=== PATIENT | female | born 1980 | race American Indian/Alaskan Native ===

== ENCOUNTER 2020-09-11 22:25 | Emergency (ER) | payer SELFPAY ==
[2020-09-11 23:08] VITALS: BP 152/95
[2020-09-12] MEDS ORDERED: FAMOTIDINE 20 MG/2 ML INJ IV ONE (00:30)
[2020-09-12] MEDS ORDERED: ONDANSETRON 4 MG/2 ML INJ IV ONE (00:30)
[2020-09-12] MEDS ORDERED: KETOROLAC 30 MG/1 ML INJ IV ONE (00:31)
[2020-09-12 00:49] LABS: Basophils % (Auto) 0.5 % (0.0-1.8); Eosinophils # (Auto) 0.1 K/mm3 (0.0-0.4); Eosinophils % (Auto) 0.7 % (0.0-4.3); Hematocrit 37.4 % (30.3-42.9); Hemoglobin 12.7 gm/dl (10.1-14.3); Lymphocytes # (Auto) 2.9 K/mm3 (1.2-5.4); Lymphocytes % (Auto) 34.2 % (13.4-35.0); Mean Corpuscular HGB Conc 34 % (30-34); Mean Corpuscular Volume 85 fl (79-97); Monocytes # (Auto) 0.7 K/mm3 (0.0-0.8); Monocytes % (Auto) 7.8 % (0.0-7.3); Platelet Count 416 K/mm3 (140-440); Red Blood Count 4.39 M/mm3 (3.65-5.03); Red Cell Distribution Width 15.9 % (13.2-15.2)
[2020-09-12 00:55] LABS: Bilirubin,Urine NEG (Negative); Blood,Urine SM (Negative); Color,Urine Yellow (Yellow); Mucus,Urine FEW /HPF; Protein,Urine <15 mg/dL mg/dL (Negative); Urobilinogen,Urine < 2.0 mg/dL (<2.0)
[2020-09-12 01:12] LABS: Alanine Aminotransferase 20 units/L (7-56); Albumin 4.2 g/dL (3.9-5); Blood Urea Nitrogen 11 mg/dL (7-17); Calcium 9.3 mg/dL (8.4-10.2); Hemolysis Index 5
[2020-09-12 01:14] LABS: BUN/Creatinine Ratio 16
--- NOTE | 2020-09-12 02:32 | Ultrasound Report ---
US abdomen limited INDICATION / CLINICAL INFORMATION: RUQ Pain. COMPARISON: None available. FINDINGS: Liver and pancreas appear unremarkable. Gallbladder is filled with stones. Common duct is normal in size. IMPRESSION: 1. Cholelithiasis. Signer Name: Vasyl Powell MD Signed: 09/12/2020 2:28 AM Workstation Name: [id number]
--- NOTE | 2020-09-12 02:36 | XRay Report ---
CHEST 1 VIEW INDICATION: cough COMPARISON: None FINDINGS: Support devices: None Heart: Normal Lungs/Pleura: No acute pulmonary or pleural findings. IMPRESSION: 1. No acute disease. Signer Name: Vasyl Powell MD Signed: 09/12/2020 2:32 AM Workstation Name: [id number]
--- NOTE | 2020-09-12 02:54 | Emergency Department Report ---
ED Abdominal Pain HPI - General Chief Complaint: Abdominal Pain Stated Complaint: HEADACHES/SOB/GALLBLADDER Source: patient Mode of arrival: Ambulatory Limitations: No Limitations - History of Present Illness Initial Comments: Patient is a 40-year-old -[place] female with a history of chronic cholelithiasis and heavy tobacco abuse who presents to the ED with complaint of acute onset persistent nasal and sinus congestion, dry cough, right upper quadrant abdominal pain for the last 2 days worse in the last 24 hours. Patient states that the pain is worse with any food she eats or laying down. Patient states that she was diagnosed with cholelithiasis 2 years ago and was supposed to follow-up outpatient for cholecystectomy but has not been able to afford as the cost is too high for her to manage without medical insurance. Patient states that she has been taking pain medications as needed for the right upper quadrant pain. Patient denies dizziness, syncope, diarrhea, dysuria, urinary frequency and urgency, chest pain, shortness of breath, change in vision, back pain, vaginal bleeding, vaginal discharge, sore throat or hematemesis and hemoptysis. MD Complaint: abdominal pain (RUQ pain), other (dry cough) -: Gradual, days(s) (2), year(s) (12) Location: RUQ, epigastric Radiation: none Migration to: no migration Severity scale (0 -10): 9 Quality: cramping, aching, sharp Consistency: constant Improves With: nothing Worsens With: eating, vomiting Context: other (chronic cholelithiasis) Associated Symptoms: denies other symptoms, nausea, vomiting, anorexia. denies: diarrhea, fever, chills, constipation, dysuria, hematemesis, hematochezia, melena, hematuria, syncope, other - Related Data LMP Date: 09/08/20 Previous Rx's Medication Instructions Recorded Last Taken Type Albuterol Sulfate [Proventil Hfa] 1 - 2 puff IH Q6H PRN #1 hfa.aer.ad 09/12/20 Unknown Rx Amoxicillin/Potassium Clav 1 each PO Q12H #20 tablet 09/12/20 Unknown Rx [Augmentin 875-125 Tablet] Benzonatate [Tessalon Perles] 100 mg PO Q8HR #30 capsule 09/12/20 Unknown Rx Dicyclomine [Bentyl] 20 mg PO Q6H PRN #30 tablet 09/12/20 Unknown Rx Famotidine [Pepcid] 20 mg PO BID #30 tablet 09/12/20 Unknown Rx Ibuprofen [Motrin] 800 mg PO Q8HR PRN #30 tablet 09/12/20 Unknown Rx Ondansetron [Zofran Odt] 4 mg PO Q6HR PRN #15 tab.rapdis 09/12/20 Unknown Rx methylPREDNISolone [Medrol 4MG 4 mg PO DAILY #21 tab.ds.pk 09/12/20 Unknown Rx DOSEPAK (21 tabs)] Allergies Allergy/AdvReac Type Severity Reaction Status Date / Time tramadol Allergy Vomiting Verified 09/11/20 23:02 ED Review of Systems ROS: Stated complaint: HEADACHES/SOB/GALLBLADDER Other details as noted in HPI Constitutional: denies: chills, fever Eyes: denies: eye pain, eye discharge, vision change ENT: congestion. denies: ear pain, throat pain Respiratory: cough. denies: shortness of breath, wheezing Cardiovascular: denies: chest pain, palpitations Endocrine: no symptoms reported Gastrointestinal: abdominal pain, nausea, vomiting. denies: diarrhea Genitourinary: denies: urgency, dysuria, discharge Musculoskeletal: denies: back pain, joint swelling, arthralgia Skin: denies: rash, lesions Neurological: denies: headache, weakness, paresthesias Psychiatric: denies: anxiety, depression Hematological/Lymphatic: denies: easy bleeding, easy bruising ED Past Medical Hx - Past Medical History Previous Medical History?: Yes Additional medical history: Ectopic , Fallopian tube removal - Surgical History Past Surgical History?: Yes Additional Surgical History: Ectopic , Fallopian tube removal - Social History Smoking Status: Current Every Day Smoker - Medications Home Medications: Home Medications Medication Instructions Recorded Confirmed Last Taken Type Albuterol Sulfate [Proventil Hfa] 1 - 2 puff IH Q6H PRN #1 hfa.aer.ad 09/12/20 Unknown Rx Amoxicillin/Potassium Clav 1 each PO Q12H #20 tablet 09/12/20 Unknown Rx [Augmentin 875-125 Tablet] Benzonatate [Tessalon Perles] 100 mg PO Q8HR #30 capsule 09/12/20 Unknown Rx Dicyclomine [Bentyl] 20 mg PO Q6H PRN #30 tablet 09/12/20 Unknown Rx Famotidine [Pepcid] 20 mg PO BID #30 tablet 09/12/20 Unknown Rx Ibuprofen [Motrin] 800 mg PO Q8HR PRN #30 tablet 09/12/20 Unknown Rx Ondansetron [Zofran Odt] 4 mg PO Q6HR PRN #15 tab.rapdis 09/12/20 Unknown Rx methylPREDNISolone [Medrol 4MG 4 mg PO DAILY #21 tab.ds.pk 09/12/20 Unknown Rx DOSEPAK (21 tabs)] ED Physical Exam - General Limitations: No Limitations General appearance: alert, in no apparent distress - Head Head exam: Present: atraumatic, normocephalic, normal inspection - Eye Eye exam: Present: normal appearance, PERRL, EOMI Pupils: Present: normal accommodation - ENT ENT exam: Present: normal exam, normal orophraynx, mucous membranes moist, TM's normal bilaterally, normal external ear exam - Neck Neck exam: Present: normal inspection, full ROM - Respiratory Respiratory exam: Present: normal lung sounds bilaterally. Absent: respiratory distress, wheezes, rales, rhonchi, stridor, chest wall tenderness, accessory muscle use, prolonged expiratory - Cardiovascular Cardiovascular Exam: Present: regular rate, normal rhythm, normal heart sounds. Absent: systolic murmur, diastolic murmur, rubs, gallop - GI/Abdominal GI/Abdominal exam: Present: soft, tenderness (Palpable right upper quadrant tenderness, no guarding or rebound and negative Engel sign), normal bowel sounds. Absent: guarding, rebound - Extremities Exam Extremities exam: Present: normal inspection, full ROM, normal capillary refill - Back Exam Back exam: Present: normal inspection, full ROM. Absent: tenderness, CVA tenderness (R), muscle spasm, paraspinal tenderness, vertebral tenderness - Neurological Exam Neurological exam: Present: alert, oriented X3, CN II-XII intact, normal gait, reflexes normal - Psychiatric Psychiatric exam: Present: normal affect, normal mood - Skin Skin exam: Present: warm, dry, intact, normal color. Absent: rash ED Course Vital Signs 09/11/20 22:58 Temperature 98.4 F Pulse Rate 78 Respiratory 16 Rate Blood Pressure 152/95 O2 Sat by Pulse 100 Oximetry ED Medical Decision Making - Lab Data Result diagrams: 09/12/20 00:27 09/12/20 00:27 - Radiology Data Radiology results: report reviewed, image reviewed [address] [address] Ultrasound Report Signed Patient: LUIS GOODMAN MR#: [id number] : 1980 Acct:[id number] Age/Sex: 40 / F ADM Date: 09/11/20 Loc: ED Attending Dr: Ordering Physician: MANDA CARVAJAL Date of Service: 09/12/20 Procedure(s): US abdomen limited Accession Number(s): [id number] cc: MANDA CARVAJAL US abdomen limited INDICATION / CLINICAL INFORMATION: RUQ Pain. COMPARISON: None available. FINDINGS: Liver and pancreas appear unremarkable. Gallbladder is filled with stones. Common duct is normal in size. IMPRESSION: 1. Cholelithiasis. Signer Name: Vasyl Powell MD Signed: 09/12/2020 2:28 AM Workstation Name: [email or web address] Transcribed By: TM Dictated By: Vasyl Powell MD Electronically Authenticated By: Vasyl Powell MD Signed Date/Time: 09/12/20227 DD/ 5 TD/TT: [address] [address] XRay Report Signed Patient: LUIS GOODMAN MR#: [id number] : 1980 Acct:[id number] Age/Sex: 40 / F ADM Date: 09/11/20 Loc: ED Attending Dr: Ordering Physician: MANDA CARVAJAL Date of Service: 09/12/20 Procedure(s): XR chest 1V ap Accession Number(s): [id number] cc: MANDA CARVAJAL Time In Minutes: CHEST 1 VIEW INDICATION: cough COMPARISON: None FINDINGS: Support devices: None Heart: Normal Lungs/Pleura: No acute pulmonary or pleural findings. IMPRESSION: 1. No acute disease. Signer Name: Vasyl Powell MD Signed: 09/12/2020 2:32 AM Workstation Name: [id number] Transcribed By: TM Dictated By: Vasyl Powell MD Electronically Authenticated By: Vasyl Powell MD Signed Date/Time: 09/12/20231 DD/ 1 TD/TT: - Medical Decision Making This is a 40-year-old -Danish female with a history of chronic cholelithiasis and heavy tobacco abuse who presents to the ED with complaint of acute onset persistent nasal and sinus congestion, dry cough, right upper quadrant abdominal pain for the last 2 days worse in the last 24 hours. Patient states that the pain is worse with any food she eats or laying down. Patient states that she was diagnosed with cholelithiasis 2 years ago and was supposed to follow-up outpatient for cholecystectomy but has not been able to afford as the cost is too high for her to manage without medical insurance. Patient states that she has been taking pain medications as needed for the right upper quadrant pain. In the ED, patient is alert and oriented x3 and is not in any distress. Patient was treated for pain in the ED and also given antiemetics and antacids. Chest x-ray shows no acute cardiopulmonary abnormalities or pneumonitis. Gallbladder ultrasound showed multiple gallstones in the gallbladder without evidence of cholecystitis or common bile duct obstruction. Lab test results were reviewed and are all nonactionable except for urinalysis that showed urinary tract infection. On reevaluation, patient's pain is well controlled medications. Patient was discharged home on pain medications, antiemetics, antacids and also given antibiotics for UTI. Patient was advised to consider following up with the general surgeon on-call Dr. Garza for outpatient follow-up for laparoscopic cholecystectomy. Patient was otherwise advised to return to the ED immediately if symptoms get worse. - Differential Diagnosis Gallstones; cholelithiasis; Bronchitis; GERD; URI Critical care attestation.: If time is entered above; I have spent that time in minutes in the direct care of this critically ill patient, excluding procedure time. ED Disposition Clinical Impression: Cholelithiasis without cholecystitis, Acute urinary tract infection Acute bronchitis Qualifiers: Bronchitis organism: other organism Qualified Code(s): J20.8 - Acute bronchitis due to other specified organisms Disposition: TO HOME OR SELFCARE Is pt being admited?: No Does the pt Need Aspirin: No Condition: Stable Instructions: Abdominal Pain (ED), Acute Bronchitis (ED), Acute Bronchitis, Adult, [id number], Cholelithiasis, Mple-aw-Ortp, Urinary Tract Infection, Adult, [id number] Additional Instructions: All lab test results were reviewed and are all nonactionable except for ur inalysis that showed significant urinary tract infection. Chest x-ray showed no acute cardiopulmonary abnormalities or pneumonitis. Gallbladder ultrasound showed multiple gallstones in the gallbladder consistent with chronic cholelithiasis. Therefore take medications with food, drink plenty of fluids and follow-up with the general surgeon on-call Dr. Garza for further evaluation outpatient for possible cholecystectomy procedure. Return to the ED immediately if symptoms get worse. Prescriptions: Amoxicillin/Potassium Clav [Augmentin 875-125 Tablet] 1 each PO Q12H #20 tablet Dicyclomine [Bentyl] 20 mg PO Q6H PRN #30 tablet PRN Reason: abdominal pain methylPREDNISolone [Medrol 4MG DOSEPAK (21 tabs)] 4 mg PO DAILY #21 tab.ds.pk Ibuprofen [Motrin] 800 mg PO Q8HR PRN #30 tablet PRN Reason: Pain , Severe (7-10) Famotidine [Pepcid] 20 mg PO BID #30 tablet Albuterol Sulfate [Proventil Hfa] 1 - 2 puff IH Q6H PRN #1 hfa.aer.ad PRN Reason: Dyspnea Benzonatate [Tessalon Perles] 100 mg PO Q8HR #30 capsule Ondansetron [Zofran Odt] 4 mg PO Q6HR PRN #15 tab.rapdis PRN Reason: Nausea Referrals: [facility] [Provider Group] - 3-5 Days TIMOTEO GARZA MD [Staff Physician] - 2-3 Days Forms: Work/School Release Form(ED) Time of Disposition: 02:59 Print Language: BURKINAN
== END 2020-09-12 03:36 | disposition home or self-care (01) ==
LOC: ED 22:25
DX: J20.8 Acute bronchitis due to other specified organisms (principal); K80.20 Calculus of gallbladder without cholecystitis without obstruction; N39.0 Urinary tract infection, site not specified; F17.200 Nicotine dependence, unspecified, uncomplicated; Z88.8 Allergy status to other drugs, medicaments and biological substances; Z79.899 Other long term (current) drug therapy; Z98.890 Other specified postprocedural states
CPT/HCPCS: 36415; 71045; 76705; 80053; 81001; 83690; 84703; 85025; 87086; 96374; 96375; 99284; J1885; J2405

== ENCOUNTER 2020-09-12 23:51 | Emergency (ER) | payer OTHER ==
[2020-09-13] MEDS ORDERED: IBUPROFEN 600 MG TAB PO ONE (00:46)
[2020-09-13] MEDS ORDERED: ACETAMINOPHEN 500 MG TAB PO ONE (00:46)
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
[2020-09-13 03:41] VITALS: BP 142/86
== END 2020-09-13 03:35 | disposition home or self-care (01) ==
LOC: ED 23:51
DX: S63.501A Unspecified sprain of right wrist, initial encounter (principal); S63.91XA Sprain of unspecified part of right wrist and hand, initial encounter; F17.200 Nicotine dependence, unspecified, uncomplicated; Z79.899 Other long term (current) drug therapy; Z98.890 Other specified postprocedural states; Z88.8 Allergy status to other drugs, medicaments and biological substances; V49.59XA Passenger injured in collision with other motor vehicles in traffic accident, initial encounter; Y92.410 Unspecified street and highway as the place of occurrence of the external cause; Y93.89 Activity, other specified; Y99.8 Other external cause status

== ENCOUNTER 2020-09-18 15:33 | Emergency (ER) | payer SELFPAY ==
[2020-09-18 16:09] VITALS: BP 130/75
--- NOTE | 2020-09-18 16:16 | Event Note ---
ED Screening Note Date of service: 09/18/20 Time: 16:15 ED Screening Note: 40-year-old female patient presents to emergency department with complaints of left hip and left knee pain status post mechanical fall yesterday. Patient states she was walking in the parking lot when she accidentally fell. There was no head injury or loss of consciousness. Patient has been ambulatory without assistance since the fall. No prior history of injuries to the left hip/left knee. Denies headache, neck pain, chest pain, abdominal pain, back pain, foot pain, ankle pain. Denies all other complaints at this time. Full physical exam deferred until examination room becomes available. This initial assessment/diagnostic orders/clinical plan/treatment(s) is/are subject to change based on patients health status, clinical progression and re- assessment by fellow clinical providers in the ED. Further treatment and workup at subsequent clinical providers discretion. Patient/guardian urged not to elope from the ED as their condition may be serious if not clinically assessed and managed.
--- NOTE | 2020-09-18 16:54 | XRay Report ---
Pelvis and left hip 2 views INDICATION: Fall FINDINGS: Bilateral femoral heads well-seated in the acetabulum. No acute fracture or dislocation. Hearn perior and inferior pubic rami appear intact. Left knee 4 views INDICATION: Knee pain FINDINGS: Alignment appears normal. No acute fracture or dislocation. Signer Name: Joe Mar MD Signed: 09/18/2020 4:49 PM Workstation Name: [id number]
--- NOTE | 2020-09-18 16:54 | XRay Report ---
Pelvis and left hip 2 views INDICATION: Fall FINDINGS: Bilateral femoral heads well-seated in the acetabulum. No acute fracture or dislocation. Hearn perior and inferior pubic rami appear intact. Left knee 4 views INDICATION: Knee pain FINDINGS: Alignment appears normal. No acute fracture or dislocation. Signer Name: Joe Mar MD Signed: 09/18/2020 4:49 PM Workstation Name: [id number]
--- NOTE | 2020-09-18 17:24 | Emergency Department Report ---
ED General Adult HPI - General Chief complaint: Fall Stated complaint: LT HIP/KNEE FALL Source: patient Mode of arrival: Ambulatory Limitations: No Limitations - History of Present Illness Initial comments: 40-year-old female patient presents to emergency department with complaints of left hip and left knee pain status post mechanical fall yesterday. Patient states she was walking in the parking lot when she accidentally fell. There was no head injury or loss of consciousness. Patient has been ambulatory without assistance since the fall. No prior history of injuries to the left hip/left knee. Denies headache, neck pain, chest pain, abdominal pain, back pain, foot pain, ankle pain. Denies all other complaints at this time. - Related Data Previous Rx's Medication Instructions Recorded Last Taken Type Albuterol Sulfate [Proventil Hfa] 1 - 2 puff IH Q6H PRN #1 hfa.aer.ad 09/12/20 Unknown Rx Amoxicillin/Potassium Clav 1 each PO Q12H #20 tablet 09/12/20 Unknown Rx [Augmentin 875-125 Tablet] Benzonatate [Tessalon Perles] 100 mg PO Q8HR #30 capsule 09/12/20 Unknown Rx Dicyclomine [Bentyl] 20 mg PO Q6H PRN #30 tablet 09/12/20 Unknown Rx Famotidine [Pepcid] 20 mg PO BID #30 tablet 09/12/20 Unknown Rx Ondansetron [Zofran Odt] 4 mg PO Q6HR PRN #15 tab.rapdis 09/12/20 Unknown Rx methylPREDNISolone [Medrol 4MG 4 mg PO DAILY #21 tab.ds.pk 09/12/20 Unknown Rx DOSEPAK (21 tabs)] Ibuprofen [Motrin 800 MG tab] 800 mg PO Q8HR PRN #30 tablet 09/13/20 Unknown Rx methOCARBAMOL [Robaxin TAB] 750 mg PO Q8H PRN #21 tablet 09/13/20 Unknown Rx Naproxen 500 mg PO BID #20 tablet 09/18/20 Unknown Rx Allergies Allergy/AdvReac Type Severity Reaction Status Date / Time tramadol Allergy Vomiting Verified 09/18/20 16:07 ED Review of Systems ROS: Stated complaint: LT HIP/KNEE FALL Other details as noted in HPI Other: CARDIOVASCULAR: Negative for chest pain. PULMONARY: Negative for dyspnea. GASTROINTESTINAL: Negative for abdominal pain. MUSCULOSKELETAL: Positive for left hip and left knee pain. NEUROLOGICAL: Negative for headache. INTEGUMENTARY: Negative for ecchymosis. ED Past Medical Hx - Past Medical History Previous Medical History?: Yes Additional medical history: Ectopic , Fallopian tube removal - Surgical History Additional Surgical History: Ectopic , Fallopian tube removal - Social History Smoking Status: Current Every Day Smoker - Medications Home Medications: Home Medications Medication Instructions Recorded Confirmed Last Taken Type Albuterol Sulfate [Proventil Hfa] 1 - 2 puff IH Q6H PRN #1 hfa.aer.ad 09/12/20 Unknown Rx Amoxicillin/Potassium Clav 1 each PO Q12H #20 tablet 09/12/20 Unknown Rx [Augmentin 875-125 Tablet] Benzonatate [Tessalon Perles] 100 mg PO Q8HR #30 capsule 09/12/20 Unknown Rx Dicyclomine [Bentyl] 20 mg PO Q6H PRN #30 tablet 09/12/20 Unknown Rx Famotidine [Pepcid] 20 mg PO BID #30 tablet 09/12/20 Unknown Rx Ondansetron [Zofran Odt] 4 mg PO Q6HR PRN #15 tab.rapdis 09/12/20 Unknown Rx methylPREDNISolone [Medrol 4MG 4 mg PO DAILY #21 tab.ds.pk 09/12/20 Unknown Rx DOSEPAK (21 tabs)] Ibuprofen [Motrin 800 MG tab] 800 mg PO Q8HR PRN #30 tablet 09/13/20 Unknown Rx methOCARBAMOL [Robaxin TAB] 750 mg PO Q8H PRN #21 tablet 09/13/20 Unknown Rx Naproxen 500 mg PO BID #20 tablet 09/18/20 Unknown Rx ED Physical Exam - General Limitations: No Limitations - Other Other exam information: General: Awake, appropriately interactive, no acute distress. Neck: Supple. Full range of motion intact. Cardiovascular: Normal peripheral perfusion. Pulmonary: No respiratory distress. Patient is speaking normally without use of accessory muscles. Skin: No apparent rashes or lesions. Neurological: No facial asymmetry. Speech is clear. Follows commands. Patient is alert and oriented. Musculoskeletal: Tenderness to palpation along the posterior left hip without obvious deformity, dislocation, or discoloration. Tenderness to palpation along the inferomedial aspect of the left knee without obvious deformity, dislocation, or discoloration. No joint effusion. Anterior drawer sign is negative. Valgus and varus stress tests are negative. Ambulatory without assistance. No overlying ecchymosis. Distal neurovascular and motor/sensory function are intact. Psych: Cooperative. Appropriate mood and affect. ED Course Vital Signs 09/18/20 16:08 Temperature 98.3 F Pulse Rate 102 H Respiratory 16 Rate Blood Pressure 130/75 O2 Sat by Pulse 99 Oximetry ED Medical Decision Making - Radiology Data X-rays of the left knee and left hip without acute process, per radiologist. - Medical Decision Making Differential diagnosis including but not limited to: sprain, strain, fracture, contusion, dislocation Patient presents emergency department with complaints of traumatic left hip/left knee pain status post mechanical fall yesterday. Vital signs are stable. She is ambulatory and neurovascularly intact throughout. She is not an appropriate candidate for rule-out using Solomons knee rules, as her tenderness is not localized to the patella. X-rays are negative. History and exam findings most suggestive of soft tissue contusion. Patient will be discharged home with appropriate symptomatic treatment and referred to local primary care provider for close outpatient follow-up. Patient expressed understanding and is agreeable to plan of care. RICE precautions discussed. Strict return precautions provided. Repeat exam is unremarkable and benign. History, exam, diagnostic testing, and current condition do not suggest worrisome pathology to warrant further testing, continued ED treatment, admission, or surgical evaluation at this point. Given the low probability of a significant medical illness, it would be more likely to result in harm than benefit to perform further testing at this stage. Discussed findings, presumptive diagnosis, need for follow-up and specific signs/symptoms that should prompt immediate return to the emergency department. Instructions were explained in detail to the patient in addition to giving written discharge information. Patient expressed understanding and was given the opportunity to ask questions, all of which were satisfactorily answered prior to discharge home. Critical care attestation.: If time is entered above; I have spent that time in minutes in the direct care of this critically ill patient, excluding procedure time. ED Disposition Clinical Impression: Contusion of left knee, initial encounter Contusion of left hip Qualifiers: Encounter type: initial encounter Qualified Code(s): S70.02XA - Contusion of left hip, initial encounter Disposition: - TO HOME OR SELFCARE Is pt being admited?: No Does the pt Need Aspirin: No Condition: Stable Additional Instructions: Take Tylenol every 4 hours as needed for pain. Take Naprosyn twice daily with food as needed for pain. Apply ice to affected areas as needed for pain. Follow-up with your primary care provider this week. Call tomorrow to schedule an appointment. Return to the emergency department immediately for new or worsening symptoms. Prescriptions: Naproxen 500 mg PO BID #20 tablet Referrals: ADONIS HEATON MD [Staff Physician] - 3-5 Days Time of Disposition: 17:24
== END 2020-09-18 18:16 | disposition home or self-care (01) ==
LOC: ED 15:33
DX: S70.02XA Contusion of left hip, initial encounter (principal); S80.02XA Contusion of left knee, initial encounter; F17.200 Nicotine dependence, unspecified, uncomplicated; Z88.8 Allergy status to other drugs, medicaments and biological substances; Z79.899 Other long term (current) drug therapy; Z98.890 Other specified postprocedural states; W18.39XA Other fall on same level, initial encounter; Y93.01 Activity, walking, marching and hiking; Y92.89 Other specified places as the place of occurrence of the external cause; Y99.8 Other external cause status
CPT/HCPCS: 99283

== ENCOUNTER 2020-10-10 14:54 | Emergency (ER) | payer SELFPAY ==
--- NOTE | 2020-10-10 18:12 | Emergency Department Report ---
ED General Adult HPI - General Chief complaint: Extremity Injury, Lower Stated complaint: RT LEG PAINS Time Seen by Provider: 10/10/20 17:59 Source: patient Mode of arrival: Ambulatory Limitations: No Limitations - History of Present Illness Initial comments: 40-year-old female patient presents to the emergency department with complaints of nontraumatic right knee pain starting this morning upon standing. Patient states she was attempting to rise from a seated position when the knee became painful. Pain is worse with standing and weightbearing. No history of prior injuries to the right knee. No medications prior to arrival. Denies fever, chills, hip pain, foot pain, ankle pain, paresthesias, skin color changes, numbness. Denies all other complaints at this time. - Related Data Previous Rx's Medication Instructions Recorded Last Taken Type Albuterol Sulfate [Proventil Hfa] 1 - 2 puff IH Q6H PRN #1 hfa.aer.ad 09/12/20 Unknown Rx Amoxicillin/Potassium Clav 1 each PO Q12H #20 tablet 09/12/20 Unknown Rx [Augmentin 875-125 Tablet] Benzonatate [Tessalon Perles] 100 mg PO Q8HR #30 capsule 09/12/20 Unknown Rx Dicyclomine [Bentyl] 20 mg PO Q6H PRN #30 tablet 09/12/20 Unknown Rx Famotidine [Pepcid] 20 mg PO BID #30 tablet 09/12/20 Unknown Rx Ondansetron [Zofran Odt] 4 mg PO Q6HR PRN #15 tab.rapdis 09/12/20 Unknown Rx methylPREDNISolone [Medrol 4MG 4 mg PO DAILY #21 tab.ds.pk 09/12/20 Unknown Rx DOSEPAK (21 tabs)] Ibuprofen [Motrin 800 MG tab] 800 mg PO Q8HR PRN #30 tablet 09/13/20 Unknown Rx methOCARBAMOL [Robaxin TAB] 750 mg PO Q8H PRN #21 tablet 09/13/20 Unknown Rx Naproxen 500 mg PO BID #20 tablet 09/18/20 Unknown Rx Naproxen 500 mg PO BID #20 tablet 10/10/20 Unknown Rx Allergies Allergy/AdvReac Type Severity Reaction Status Date / Time tramadol Allergy Vomiting Verified 09/18/20 16:07 ED Review of Systems ROS: Stated complaint: RT LEG PAINS Other details as noted in HPI Other: GENERAL: Negative for fever. CARDIOVASCULAR: Negative for chest pain. PULMONARY: Negative for shortness of breath. GASTROINTESTINAL: Negative for abdominal pain. MUSCULOSKELETAL: Positive for knee pain. NEUROLOGICAL: Negative for headache. INTEGUMENTARY: Negative for rash. ED Past Medical Hx - Past Medical History Previous Medical History?: No Additional medical history: Ectopic , Fallopian tube removal - Surgical History Additional Surgical History: Ectopic , Fallopian tube removal - Social History Smoking Status: Current Every Day Smoker - Medications Home Medications: Home Medications Medication Instructions Recorded Confirmed Last Taken Type Albuterol Sulfate [Proventil Hfa] 1 - 2 puff IH Q6H PRN #1 hfa.aer.ad 09/12/20 Unknown Rx Amoxicillin/Potassium Clav 1 each PO Q12H #20 tablet 09/12/20 Unknown Rx [Augmentin 875-125 Tablet] Benzonatate [Tessalon Perles] 100 mg PO Q8HR #30 capsule 09/12/20 Unknown Rx Dicyclomine [Bentyl] 20 mg PO Q6H PRN #30 tablet 09/12/20 Unknown Rx Famotidine [Pepcid] 20 mg PO BID #30 tablet 09/12/20 Unknown Rx Ondansetron [Zofran Odt] 4 mg PO Q6HR PRN #15 tab.rapdis 09/12/20 Unknown Rx methylPREDNISolone [Medrol 4MG 4 mg PO DAILY #21 tab.ds.pk 09/12/20 Unknown Rx DOSEPAK (21 tabs)] Ibuprofen [Motrin 800 MG tab] 800 mg PO Q8HR PRN #30 tablet 09/13/20 Unknown Rx methOCARBAMOL [Robaxin TAB] 750 mg PO Q8H PRN #21 tablet 09/13/20 Unknown Rx Naproxen 500 mg PO BID #20 tablet 09/18/20 Unknown Rx Naproxen 500 mg PO BID #20 tablet 10/10/20 Unknown Rx ED Physical Exam - General Limitations: No Limitations - Other Other exam information: General: Awake, appropriately interactive, no acute distress. Neck: Supple. Full range of motion intact. Cardiovascular: Normal peripheral perfusion. Pulmonary: No respiratory distress. Patient is speaking normally without use of accessory muscles. Skin: No apparent rashes or lesions. Neurological: No facial asymmetry. Speech is clear. Follows commands. Patient is alert and oriented. Musculoskeletal: Patient reports pain to the right knee on weightbearing without reproducible tenderness. No obvious deformity or dislocation. Valgus and varus stress tests are negative. No obvious joint effusion. Anterior drawer sign is negative. Distal neurovascular and motor/sensory function intact. Psych: Cooperative. Appropriate mood and affect. ED Medical Decision Making - Medical Decision Making Differential diagnosis including but not limited to: sprain, strain, fracture, contusion, dislocation, ligamentous injury, meniscal injury, septic arthritis, osteoarthritis, rheumatoid arthritis, hemarthrosis On reevaluation, patient remains stable. Repeat neurovascular exam remains intact. X-rays without acute process. Pain is appropriately proportional to physical exam findings without clinical evidence to suggest underlying infectious process. No preceding trauma. Vital signs are stable. She is afebrile. No clinical indication for further diagnostic work-up on an emergent basis at this time. Patient will be discharged home with Kvng wrap, crutches, and referral to orthopedics for close outpatient follow-up as well as appropriate analgesics. Patient expressed understanding and is agreeable to plan of care. RICE precautions discussed. Strict return precautions provided. Repeat exam is unremarkable and benign. History, exam, diagnostic testing, and current condition do not suggest worrisome pathology to warrant further testing, continued ED treatment, admission, or surgical evaluation at this point. Given the low probability of a significant medical illness, it would be more likely to result in harm than benefit to perform further testing at this stage. Discussed findings, presumptive diagnosis, need for follow-up and specific signs/symptoms that should prompt immediate return to the emergency department. Instructions were explained in detail to the patient in addition to giving written discharge information. Patient expressed understanding and was given the opportunity to ask questions, all of which were satisfactorily answered prior to discharge home. Critical care attestation.: If time is entered above; I have spent that time in minutes in the direct care of this critically ill patient, excluding procedure time. ED Disposition Clinical Impression: Knee pain Qualifiers: Chronicity: acute Laterality: right Qualified Code(s): M25.561 - Pain in right knee Disposition: TO HOME OR SELFCARE Is pt being admited?: No Does the pt Need Aspirin: No Condition: Stable Instructions: Acute Knee Pain, Adult Additional Instructions: Take Tylenol every 4 hours as needed for pain. Take Naprosyn twice daily with food as needed for pain. Wear Kvng wrap as directed. Use crutches as needed. Follow-up with Dr. Keys, orthopedics, this week. Call tomorrow to schedule an appointment. Return to the emergency department immediately for new or worsening symptoms. Prescriptions: Naproxen 500 mg PO BID #20 tablet Referrals: TERRIE KEYS MD [Staff Physician] - 3-5 Days Forms: Work/School Release Form(ED) Time of Disposition: 18:52
--- NOTE | 2020-10-10 18:40 | XRay Report ---
RIGHT KNEE 4 VIEW(S) INDICATION / CLINICAL INFORMATION: Right knee pain COMPARISON: None available. FINDINGS: BONES / JOINT(S): No acute fracture or subluxation. No significant arthritis. SOFT TISSUES: No significant abnormality. ADDITIONAL FINDINGS: None. Signer Name: Giovanni Arenas MD Signed: 10/10/2020 6:36 PM Workstation Name: [id number]
== END 2020-10-10 19:20 | disposition home or self-care (01) ==
LOC: ED 14:54
DX: M25.561 Pain in right knee (principal); F17.200 Nicotine dependence, unspecified, uncomplicated; Z79.899 Other long term (current) drug therapy; Z88.8 Allergy status to other drugs, medicaments and biological substances; Z98.890 Other specified postprocedural states